=== PATIENT | male | born 1965 | race Caucasian/White ===

== ENCOUNTER → 2017-05-15 | Outpatient (REF) | payer OTHER ==
[2017-05-15 13:12] LABS: MEAN CORPUSCULAR HEMOGLOBIN 31.8 pg (27.0-33.0); MEAN CORPUSCULAR HGB CONC 33.9 g/dl (32.0-36.5); MEAN CORPUSCULAR VOLUME 93.9 fl (80.0-96.0); RED CELL DISTRIBUTION WIDTH 12.1 % (11.5-14.5); WHITE BLOOD COUNT 7.3 K/mm3 (4.0-10.0)
[2017-05-15 15:34] LABS: ALBUMIN 4.2 GM/DL (3.2-5.2); ALBUMIN/GLOBULIN RATIO 1.27 (1.00-1.93); ALKALINE PHOSPHATASE 75 U/L (45-117); ALT/SGPT 41 U/L (12-78); ANION GAP 7 MEQ/L (8-16); AST/SGOT 13 U/L (15-37); BILIRUBIN,TOTAL 1.1 MG/DL (0.2-1.0); BLOOD UREA NITROGEN 16 MG/DL (7-18); CALCIUM LEVEL 8.9 MG/DL (8.5-10.1); CARBON DIOXIDE LEVEL 29 MEQ/L (21-32); CHLORIDE LEVEL 104 MEQ/L (98-107); CHOLESTEROL LEVEL 194 MG/DL (<200); CREATININE FOR GFR 0.92 MG/DL (0.70-1.30); FREE T4 1.14 NG/DL (0.76-1.46); GLOMERULAR FILTRATION RATE > 60.0 (>56); GLUCOSE, FASTING 90 MG/DL (70-105); POTASSIUM SERUM 4.7 MEQ/L (3.5-5.1); SODIUM LEVEL 140 MEQ/L (136-145); TOTAL PROTEIN 7.5 GM/DL (6.4-8.2); TRIGLYCERIDES LEVEL 122 MG/DL (<150)
== END ==
LOC: M SFHCADAM 10:40
PROVIDERS: ATTEND Family Medicine
DX: Z00.00 Encounter for general adult medical examination without abnormal findings (principal)

== ENCOUNTER → 2020-03-03 | Outpatient (REF) | payer OTHER ==
[2020-03-03 18:05] LABS: HEMATOCRIT 46.6 % (42.0-52.0); HEMOGLOBIN 15.6 g/dl (13.5-17.5); MEAN CORPUSCULAR HEMOGLOBIN 31.1 pg (27.0-33.0); MEAN CORPUSCULAR HGB CONC 33.5 g/dl (32.0-36.5); MEAN CORPUSCULAR VOLUME 92.8 fl (80.0-96.0); PLATELET COUNT, AUTOMATED 316 10^3/uL (150-450); RED BLOOD COUNT 5.02 10^6/uL (4.30-6.10); WHITE BLOOD COUNT 8.4 10^3/uL (4.0-10.0)
[2020-03-03 18:36] LABS: ALT/SGPT 35 U/L (12-78); BILIRUBIN,TOTAL 0.9 MG/DL (0.2-1.0); BLOOD UREA NITROGEN 23 MG/DL (7-18); CALCIUM LEVEL 9.3 MG/DL (8.5-10.1); CARBON DIOXIDE LEVEL 26 MEQ/L (21-32); CHLORIDE LEVEL 106 MEQ/L (98-107); CHOLESTEROL LEVEL 220 MG/DL (<200); CHOLESTEROL RISK RATIO 5.945 (<5); CREATININE FOR GFR 0.96 MG/DL (0.70-1.30); FREE T4 1.02 NG/DL (0.76-1.46); GLOMERULAR FILTRATION RATE > 60.0 (>56); GLUCOSE, FASTING 81 MG/DL (70-100); HDL CHOLESTEROL 37 MG/DL (>40); LDL CHOLESTEROL 154 MG/DL (<100); NON-HDL-C 183 MG/DL; POTASSIUM SERUM 4.5 MEQ/L (3.5-5.1); SODIUM LEVEL 140 MEQ/L (136-145); TOTAL PROTEIN 7.4 GM/DL (6.4-8.2); TRIGLYCERIDES LEVEL 145 MG/DL (<150)
[2020-03-04 11:16] LABS: VITAMIN B12 LEVEL 459 PG/ML (247-911)
[2020-03-04 11:17] LABS: FOLATE > 24.0 NG/ML (>5.4)
== END ==
LOC: M SFHCADAM 15:06
PROVIDERS: ATTEND Family Medicine
DX: R41.3 Other amnesia (principal); E78.5 Hyperlipidemia, unspecified; Z12.5 Encounter for screening for malignant neoplasm of prostate

== ENCOUNTER → 2020-04-05 | Outpatient (CLI) | payer OTHER ==
[~2020-04-05] MED LIST: PROHANCE 279.3MG/ML 15ML VIAL As Ordered ONE; PROHANCE 279.3MG/ML 5ML VIAL As Ordered ONE
--- NOTE | 2020-04-05 14:35 | REP ---
MRI BRAIN WITHOUT AND WITH IV CONTRAST: HISTORY: Memory loss and bilateral headaches. No comparison brain imaging. TECHNIQUE: Axial and sagittal imaging planes are utilized for T1- and T2-weighted scans. Sequences include spin-echo, fast spin echo, FLAIR, and diffusion weighted sequences. 20 mL of intravenous ProHance is administered. MRI FINDINGS: No bony calvarial lesion is appreciated. Craniocervical junction and upper cervical cord are normal in appearance. There is a prominent superior cerebellar cistern noted incidentally. No other extra-axial fluid collection is seen. No intracranial mass lesion is observed. Diffusion weighted scans show no evidence of restricted diffusion to suggest acute ischemia. There is no evidence of intracranial hemorrhage. Visualized paranasal sinuses are clear. No intraorbital abnormality is seen. Postcontrast images show enhancement in normal vasculature. No abnormal intracranial contrast enhancement is appreciated. IMPRESSION: Unremarkable MRI study of the brain without and with IV contrast. Electronically Signed by Vahid Mares MD 04/05/2020 05:59 P
== END ==
LOC: M RAD 09:40
PROVIDERS: ATTEND Family Medicine
DX: R41.3 Other amnesia (principal); R51 Headache
CPT/HCPCS: 70553; A9576

== ENCOUNTER → 2020-07-02 | Outpatient (CLI) | payer OTHER ==
[~2020-07-02] MED LIST changes: +D31000TA2 PO; +ECOT81TA5 PO; +MAPA325T8 PO; +MULTCAP PO; -PROHANCE 279.3MG/ML 15ML VIAL As Ordered ONE; -PROHANCE 279.3MG/ML 5ML VIAL As Ordered ONE
== END ==
LOC: M LABSMTC 09:54
PROVIDERS: ATTEND Anesthesiology
DX: Z01.812 Encounter for preprocedural laboratory examination (principal); Z11.59 Encounter for screening for other viral diseases
CPT/HCPCS: C9803; U0002

== ENCOUNTER 2020-07-07 09:18 | Day surgery (SDC) | payer OTHER ==
[~2020-07-07] VITALS: Ht 182.9 cm; Wt 121.1 kg
[~2020-07-07 09:18] MED LIST changes: +NS 1,000 ML IV ONE
[2020-07-07] MEDS ORDERED: propofoL 200 MG/20 ML VIAL As Ordered ONE ×2 (11:34→11:50)
[2020-07-07 12:27] VITALS: BP 129/57
--- NOTE | 2020-07-20 11:30 | ROOR ---
Patient Name: Leno Frederick Procedure Date: 07/07/2020 11:29 AM Date of : 1965 Age: 55 Room: [facility] Gender: Male Note Status: Finalized Procedure: Colonoscopy Indications: Screening for colorectal malignant neoplasm, Last colonoscopy: January 2012 Providers: Reji Espinoza MD Referring MD: Ed Venegas MD Requesting Provider: Medicines: Monitored Anesthesia Care Complications: No immediate complications. Procedure: Pre-Anesthesia Assessment: - Prior to the procedure, a History and Physical was performed, and patient medications and allergies were reviewed. The patient is competent. The risks and benefits of the procedure and the sedation options and risks were discussed with the patient. All questions were answered and informed consent was obtained. Patient identification and proposed procedure were verified by the physician, the nurse and the anesthesiologist in the procedure room. Mental Status Examination: alert and oriented. CV Examination: regular rate and rhythm. Prophylactic Antibiotics: The patient does not require prophylactic antibiotics. Prior Anticoagulants: The patient has taken no previous anticoagulant or antiplatelet agents. ASA Grade Assessment: II - A patient with mild systemic disease. After reviewing the risks and benefits, the patient was deemed in satisfactory condition to undergo the procedure. The anesthesia plan was to use monitored anesthesia care (MAC). Immediately prior to administration of medications, the patient was re-assessed for adequacy to receive sedatives. The heart rate, respiratory rate, oxygen saturations, blood pressure, adequacy of pulmonary ventilation, and response to care were monitored throughout the procedure. The physical status of the patient was re-assessed after the procedure. The Colonoscope was introduced through the anus and advanced to the cecum, identified by appendiceal orifice and ileocecal valve. The colonoscopy was performed without difficulty. The patient tolerated the procedure well. The quality of the bowel preparation was excellent. Findings: The perianal and digital rectal examinations were normal. The colon (entire examined portion) appeared normal. Impression: - The entire examined colon is normal. - No specimens collected. Recommendation: - Discharge patient to home. - Resume previous diet. - Continue present medications. Reji Espinoza MD Reji Espinoza MD 07/07/2020 12:01:56 PM Number of Addenda: 0 Note Initiated On: 07/07/2020 11:29 AM Estimated Blood Loss: Estimated blood loss: none.
== END 2020-07-07 12:29 | disposition home or self-care (01) ==
LOC: M OPP 09:18
PROVIDERS: ATTEND Surgery
DX: Z12.11 Encounter for screening for malignant neoplasm of colon (principal); G47.30 Sleep apnea, unspecified; Z79.82 Long term (current) use of aspirin

== ENCOUNTER → 2020-08-11 | Outpatient (CLI) | payer OTHER ==
[~2020-08-11] MED LIST changes: -NS 1,000 ML IV ONE
--- NOTE | 2020-08-17 09:28 | REP ---
LEFT SHOULDER RADIOGRAPHS: 3-VIEWS HISTORY: Left shoulder tendinitis. Left shoulder pain. FINDINGS: The left glenohumeral and acromioclavicular joints are normally aligned. The periarticular soft tissues are unremarkable. No erosive change or destructive lesion is seen. The visualized left hemithorax is unremarkable. IMPRESSION: Negative radiographs of the left shoulder. MTDD
== END ==
LOC: M ADAMS 11:34
PROVIDERS: ATTEND Family Medicine
DX: M77.8 Other enthesopathies, not elsewhere classified (principal)

== ENCOUNTER → 2020-09-02 | Outpatient (CLI) | payer OTHER ==
--- NOTE | 2020-09-02 13:28 | REP ---
INDICATION: N62 SUBAREOLAR GYNECOMASTIA RT BREAST; N62 SUBAREOLAR GYNECOMASTIA RT BREAST. Right nipple pain for 1.5 months. COMPARISON: None TECHNIQUE: MLO and CC views of bilateral breasts performed with tomosynthesis. Focused right retroareolar ultrasound performed. FINDINGS: Mild retroareolar fibroglandular tissue is present bilaterally. There is a slightly greater amount of fibroglandular tissue on the right than on the left. No architectural distortion or focal mass is seen bilaterally. No suspicious clusters of microcalcifications are seen bilaterally. Real-time sonographic evaluation of the right retroareolar region demonstrates ill-defined hypoechoic tissue compatible with gynecomastia. IMPRESSION: BIRADS/ACR category 2 benign. Mammographic and sonographic findings most consistent with asymmetric right-sided gynecomastia. A negative mammogram and ultrasound should not deter biopsy if there is a clinically suspicious palpable mass present. Clinical correlation and follow-up recommended. This mammogram was interpreted with the aid of an FDA-approved computer-aided detection system. The patient letter being requested is M2. RECOMMENDATION: Recommend clinical correlation and follow-up. <Electronically signed by Joseluis Gallo > 09/02/20 [id number]
== END ==
LOC: M WHC 10:18
PROVIDERS: ATTEND Family Medicine
DX: N64.89 Other specified disorders of breast (principal)
CPT/HCPCS: 76642; 77066; G0279

== ENCOUNTER → 2020-10-28 | Outpatient (REF) | payer OTHER ==
[2020-10-28 13:36] LABS: FOLLICLE STIMULATING HORMONE 3.9 mIU/mL (1.4-18.1); LUTEINIZING HORMONE 2.9 mIU/mL (1.5-9.3)
== END ==
LOC: M PLALAB 10:39
PROVIDERS: ATTEND Surgery
DX: N62 Hypertrophy of breast (principal)

== ENCOUNTER → 2021-11-01 | Outpatient (REF) | payer OTHER ==
[2021-11-01 19:14] LABS: ALT/SGPT 26 U/L (12-78); BILIRUBIN,TOTAL 0.8 MG/DL (0.2-1.0); BLOOD UREA NITROGEN 20 MG/DL (7-18); CALCIUM LEVEL 8.8 MG/DL (8.5-10.1); CARBON DIOXIDE LEVEL 28 MEQ/L (21-32); CHLORIDE LEVEL 108 MEQ/L (98-107); CHOLESTEROL LEVEL 203 MG/DL (<200); CHOLESTEROL RISK RATIO 6.548 (<5); CREATININE FOR GFR 0.89 MG/DL (0.70-1.30); GLOMERULAR FILTRATION RATE > 60.0 (>56); GLUCOSE, FASTING 92 MG/DL (70-100); HDL CHOLESTEROL 31 MG/DL (>40); LDL CHOLESTEROL 113 MG/DL (<100); NON-HDL-C 172 MG/DL; POTASSIUM SERUM 4.1 MEQ/L (3.5-5.1); SODIUM LEVEL 141 MEQ/L (136-145); TOTAL PROTEIN 7.4 GM/DL (6.4-8.2); TRIGLYCERIDES LEVEL 295 MG/DL (<150)
[2021-11-01 19:16] LABS: HEMATOCRIT 45.2 % (42.0-52.0); HEMOGLOBIN 15.1 g/dl (13.5-17.5); MEAN CORPUSCULAR HEMOGLOBIN 30.9 pg (27.0-33.0); MEAN CORPUSCULAR HGB CONC 33.4 g/dl (32.0-36.5); MEAN CORPUSCULAR VOLUME 92.6 fl (80.0-96.0); PLATELET COUNT, AUTOMATED 308 10^3/uL (150-450); RED BLOOD COUNT 4.88 10^6/uL (4.30-6.10); WHITE BLOOD COUNT 6.8 10^3/uL (4.0-10.0)
== END ==
LOC: M SFHCADAM 15:19
PROVIDERS: ATTEND Family Medicine
DX: G47.33 Obstructive sleep apnea (adult) (pediatric) (principal); E78.5 Hyperlipidemia, unspecified; Z12.5 Encounter for screening for malignant neoplasm of prostate
CPT/HCPCS: 80053; 80061; 85027; G0103

== ENCOUNTER → 2022-12-26 | Outpatient (CLI) | payer OTHER ==
[~2022-12-26] MED LIST changes: -D31000TA2 PO; +VITA100093 PO
[2022-12-26 17:02] LABS: HEMATOCRIT 44.5 % (42.0-52.0); HEMOGLOBIN 14.9 g/dl (13.5-17.5); MEAN CORPUSCULAR HEMOGLOBIN 31.2 pg (27.0-33.0); MEAN CORPUSCULAR HGB CONC 33.5 g/dl (32.0-36.5); MEAN CORPUSCULAR VOLUME 93.3 fl (80.0-96.0); PLATELET COUNT, AUTOMATED 260 10^3/uL (150-450); RED BLOOD COUNT 4.77 10^6/uL (4.30-6.10); WHITE BLOOD COUNT 8.6 10^3/uL (4.0-10.0)
[2022-12-26 19:24] LABS: HEMOGLOBIN A1c 5.7 % (4.0-6.0)
[2022-12-26 22:12] LABS: CHOLESTEROL RISK RATIO 6.05 (<5); FREE T4 1.23 NG/DL (0.89-1.76); HDL CHOLESTEROL 33.5 MG/DL (>40); LDL CHOLESTEROL 121.3 MG/DL (<100); THYROID STIMULATING HORMONE 1.901 uIU/ML (0.55-4.78)
== END ==
LOC: M PLALAB 14:52
PROVIDERS: ATTEND Family Medicine
DX: G47.33 Obstructive sleep apnea (adult) (pediatric) (principal); R53.83 Other fatigue; E78.5 Hyperlipidemia, unspecified; Z13.1 Encounter for screening for diabetes mellitus; Z12.5 Encounter for screening for malignant neoplasm of prostate
CPT/HCPCS: 36415; 80061; 83036; 84439; 84443; 85027; G0103

== ENCOUNTER → 2024-01-15 | Outpatient (CLI) | payer OTHER | LOC: M PLAIMG 13:45 | PROVIDERS: ATTEND Family Medicine | DX: R05.3 Chronic cough (principal) ==

== ENCOUNTER 2024-12-07 11:43 | Observation (INO) | payer OTHER ==
[~2024-12-07] VITALS: Ht 182.9 cm; Wt 121.6 kg
[2024-12-07] MEDS ORDERED: ELET40TA PO (11:54)
[2024-12-07 12:25] LABS: BASO % 0.6 % (0.0-1.0); EOS # 0.1 10^3/uL (0.0-0.5); EOS % 1.7 % (0.0-3.0); HEMATOCRIT 43.3 % (42.0-52.0); HEMOGLOBIN 14.7 g/dl (13.5-17.5); LYMPH # 2.2 10^3/uL (1.5-5.0); LYMPH % 32.1 % (24.0-44.0); MEAN CORPUSCULAR HEMOGLOBIN 31.1 pg (27.0-33.0); MEAN CORPUSCULAR HGB CONC 33.9 g/dl (32.0-36.5); MEAN CORPUSCULAR VOLUME 91.7 fl (80.0-96.0); MONO # 0.7 10^3/uL (0.0-0.8); MONO % 10.3 % (2.0-8.0); NEUTROPHILS # 3.8 10^3/uL (1.5-8.5); PLATELET COUNT, AUTOMATED 340 10^3/uL (150-450); RED BLOOD COUNT 4.72 10^6/uL (4.30-6.10); WHITE BLOOD COUNT 6.9 10^3/uL (4.0-10.0)
[2024-12-07 12:52] LABS: CK-MB VALUE MASS < 1.0 NG/ML (<3.6)
[2024-12-07 12:53] LABS: LIPASE 33 U/L (12-53)
[2024-12-07 12:55] LABS: ALBUMIN 3.9 G/DL (3.2-5.2); ALKALINE PHOSPHATASE 65 U/L (40-129); ALT/SGPT 26 U/L (7.0-40); AST/SGOT 11 U/L (<34); BILIRUBIN,DIRECT 0.4 MG/DL (<0.4); BILIRUBIN,TOTAL 1.4 MG/DL (0.3-1.2); BLOOD UREA NITROGEN 18 MG/DL (9-23); CALCIUM LEVEL 9.2 MG/DL (8.3-10.6); CARBON DIOXIDE LEVEL 25 MMOL/L (20-31); CHLORIDE LEVEL 110 MMOL/L (98-107); CPK CREATINE PHOSPHOKINASE 104 U/L (46-171); CREATININE FOR GFR 0.82 MG/DL (0.70-1.30); GLOMERULAR FILTRATION RATE > 60.0 (>49); GLUCOSE, FASTING 94 MG/DL (74-106); MB/CK RELATIVE INDEX 0.96 (< OR =4); POTASSIUM SERUM 4.3 MMOL/L (3.5-5.1); SODIUM LEVEL 143 MMOL/L (136-145); THYROID STIMULATING HORMONE 1.099 uIU/ML (0.55-4.78); TOTAL PROTEIN 7.2 G/DL (5.7-8.2)
[2024-12-07 12:57] LABS: FREE T4 1.29 NG/DL (0.89-1.76)
[2024-12-07] MEDS ORDERED: ISOVUE-370 76% 100ML VIAL As Ordered ONE (14:07)
[2024-12-07 14:48] LABS: INR 1.02; PARTIAL THROMBOPLASTIN TIME 31.1 SECONDS (24.8-34.2); PROTHROMBIN TIME 13.7 SECONDS (12.5-14.5)
[2024-12-07 15:04] LABS: CK-MB VALUE MASS < 1.0 NG/ML (<3.6)
[2024-12-07 15:10] LABS: CPK CREATINE PHOSPHOKINASE 92 U/L (46-171); MB/CK RELATIVE INDEX 1.08 (< OR =4)
[2024-12-07] MEDS ORDERED: GLUC500C37 PO (16:28)
[2024-12-07] MEDS ORDERED: THERTAB19 PO (16:28)
[2024-12-07] MEDS ORDERED: tumeric PO (16:28)
[2024-12-07] MEDS ORDERED: HOME MED LIST COMPLETE! XX SCH (16:30)
[2024-12-07 17:25] LABS: C REACTIVE PROTEIN QUANTITATIV < 0.50 MG/DL (<1.0); CHOLESTEROL LEVEL 204 MG/DL (<200); CHOLESTEROL RISK RATIO 5.02 (<5); HDL CHOLESTEROL 40.6 MG/DL (>40); LDL CHOLESTEROL 143.2 MG/DL (<100); NON-HDL-C 163.4 MG/DL; TRIGLYCERIDES LEVEL 101 MG/DL (<150)
[2024-12-07 17:25] LABS: HEMOGLOBIN A1c 5.7 % (4.0-6.0)
[2024-12-07] MEDS: TOPIRAMATE (TopAMAX) 25 MG TAB PO SCH (23:49)
[2024-12-07] MEDS: SUCRALFATE 1 GM TAB PO SCH (23:50)
[2024-12-08 07:28] LABS: BASO % 0.5 % (0.0-1.0); EOS # 0.2 10^3/uL (0.0-0.5); EOS % 2.7 % (0.0-3.0); HEMATOCRIT 45.1 % (42.0-52.0); HEMOGLOBIN 15.6 g/dl (13.5-17.5); LYMPH # 2.2 10^3/uL (1.5-5.0); LYMPH % 30.6 % (24.0-44.0); MEAN CORPUSCULAR HEMOGLOBIN 31.8 pg (27.0-33.0); MEAN CORPUSCULAR HGB CONC 34.6 g/dl (32.0-36.5); MEAN CORPUSCULAR VOLUME 91.9 fl (80.0-96.0); MONO % 13.4 % (2.0-8.0); NEUTROPHILS # 3.9 10^3/uL (1.5-8.5); NEUTROPHILS % 52.5 % (36.0-66.0); PLATELET COUNT, AUTOMATED 310 10^3/uL (150-450); RED BLOOD COUNT 4.91 10^6/uL (4.30-6.10); WHITE BLOOD COUNT 7.3 10^3/uL (4.0-10.0)
[2024-12-08 08:00] LABS: ALBUMIN 3.7 G/DL (3.2-5.2); ALKALINE PHOSPHATASE 63 U/L (40-129); ALT/SGPT 22 U/L (7.0-40); AST/SGOT 10 U/L (<34); BILIRUBIN,TOTAL 1.3 MG/DL (0.3-1.2); BLOOD UREA NITROGEN 14 MG/DL (9-23); CALCIUM LEVEL 8.8 MG/DL (8.3-10.6); CARBON DIOXIDE LEVEL 27 MMOL/L (20-31); CHLORIDE LEVEL 107 MMOL/L (98-107); CREATININE FOR GFR 0.76 MG/DL (0.70-1.30); GLOMERULAR FILTRATION RATE > 60.0 (>49); GLUCOSE, FASTING 104 MG/DL (74-106); MAGNESIUM LEVEL 1.9 MG/DL (1.8-2.4); POTASSIUM SERUM 4.2 MMOL/L (3.5-5.1); SODIUM LEVEL 143 MMOL/L (136-145); TOTAL PROTEIN 6.9 G/DL (5.7-8.2)
[2024-12-08] MEDS: ENOXAPARIN 40MG/0.4ML SYRINGE (J1650 PER 10MG) SC SCH (09:00)
[2024-12-08] MEDS: ATORVASTATIN 20 MG TAB PO SCH (09:00)
[2024-12-08] MEDS: ASPIRIN 325 MG TAB PO SCH (09:00)
[2024-12-08] MEDS: PANTOPRAZOLE 40MG TAB (PROTONIX) PO SCH (09:00)
[2024-12-08] MEDS ORDERED: ASPI81CH33 PO (11:00)
[2024-12-08] MEDS ORDERED: ATOR1TAB21 PO (11:00)
[2024-12-08] MEDS ORDERED: PANT40TA29 PO (11:00)
[2024-12-08] MEDS ORDERED: NORV5TAB PO (11:00)
[2024-12-08] MEDS ORDERED: SUCR1TA PO (11:00)
[2024-12-08] MEDS ORDERED: TOPA1TAB PO (11:00)
[2024-12-08] MEDS ORDERED: ASPI81TA26 PO (11:15)
[2024-12-08] MEDS ORDERED: ATOR80TA59 PO (11:15)
[2024-12-08 11:35] VITALS: BP 140/90
[2024-12-08] MEDS: CLOPIDOGREL 300 MG TAB (PLAVIX) PO ONE (11:35)
[2024-12-08] MEDS: amLODIPine 5 MG TAB PO ONE (11:35)
[2024-12-08] MEDS ORDERED: CLOP75TA99 PO (11:59)
[2024-12-08 13:15] VITALS: O2SAT 97
[2024-12-08 13:58] VITALS: BP 160/85; TEMP 97.7
== END 2024-12-08 13:58 | disposition home or self-care (01) ==
LOC: M ED 11:43 → M ED INP 16:24
PROVIDERS: ADMIT Internal Medicine; ATTEND Internal Medicine
DX: R07.89 Other chest pain (principal); K21.9 Gastro-esophageal reflux disease without esophagitis; E78.5 Hyperlipidemia, unspecified; M48.02 Spinal stenosis, cervical region; G43.909 Migraine, unspecified, not intractable, without status migrainosus; I10 Essential (primary) hypertension; G47.33 Obstructive sleep apnea (adult) (pediatric); R20.0 Anesthesia of skin; Z79.899 Other long term (current) drug therapy; Z79.82 Long term (current) use of aspirin
CPT/HCPCS: 36415; 70450; 70544; 70547; 70551; 71045; 71275; 72141; 80048; 80053; 80061; 80076; 82550; 82553; 83036; 83690; 83735; 84439; 84443; 84484; 85025; 85610; 85652; 85730; 86140; 86850; 86900; 86901; 93005; 93041; 93306; 94760; 96372; 97161; 97165; 97530; 99285; J1650; Q9967